=== PATIENT | female | born 2005 | race Caucasian/White ===

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

== ENCOUNTER 2024-01-02 20:44 | Emergency (ER) | payer OTHER ==
[2024-01-02 20:52] VITALS: BP 138/80; PULSE 98; RESP 18; TEMP 98.5; BMI 27.1
[2024-01-02] MEDS ORDERED: LIDOCAINE PATCH REMOVAL MC SCH (22:00)
[2024-01-02] MEDS ORDERED: IBUPROFEN 600 MG TABLET (FP) PO ONE (22:07)
[2024-01-02] MEDS ORDERED: diazePAM 5 MG TABLET ONE (22:07)
[2024-01-02] MEDS ORDERED: LIDOCAINE 4% PATCH TP ONE (22:10)
[2024-01-02] MEDS: IBUPROFEN 600 MG TABLET (FP) PO ONE (22:12)
[2024-01-02] MEDS: diazePAM 5 MG TABLET PO ONE (22:13)
[2024-01-03] MEDS ORDERED: LIDOCAINE 4% PATCH TP SCH (10:00)
== END 2024-01-02 22:47 | disposition home or self-care (01) ==
LOC: JER 20:44 → JERFT 20:44
DX: S16.1XXA Strain of muscle, fascia and tendon at neck level, initial encounter (principal); V49.50XA Passenger injured in collision with unspecified motor vehicles in traffic accident, initial encounter
CPT/HCPCS: 72050-TC-FY; 99283-25